=== PATIENT | female | born 1995 | race Hispanic/Latino ===

== ENCOUNTER 2018-12-28 14:49 | Outpatient (CLI) | payer OTHER ==
--- NOTE | 2018-12-28 15:53 | ULT ---
EXAM: OB ultrasound COMPARISON: None HISTORY: female. Evaluate size, dates, and anatomy. TECHNIQUE: Multiplanar grayscale and color Doppler images were obtained in a transabdominal ult rasound. FINDINGS: There is a single live intrauterine with heart rate of 158 bpm. A survey wa s performed which is unremarkable. A four-chamber heart was not adequately visualized. The head, intracranial structures, stomach, kidneys, umbilical cord, umbilical cord insertion, spine, face, an d extremities were evaluated and were unremarkable. Estimated weight is 876 g. Average age of the fetus based off today's examination is 26 weeks 1 day. BPD 6.47 cm -- 26 weeks 2 days HC 23.82 cm -- 26 weeks 0 days AC 22.09 cm -- 26 weeks 4 days FL 4.58 cm -- 25 weeks 2 days The placenta is anterior in location without focal abnormality. SOUMYA is 24.78 cm which is normal. The cervix is normal in length. There is no evidence of placenta previa. IMPRESSION: Single live intrauterine with estimated age of 26 weeks 1 day.
== END 2018-12-28 14:50 | disposition home or self-care (01) ==
LOC: BICULT 14:49
PROVIDERS: ATTEND Family Medicine
DX: O09.92 Supervision of high risk pregnancy, unspecified, second trimester (principal); Z3A.26 26 weeks gestation of pregnancy
CPT/HCPCS: 76805

== ENCOUNTER 2019-03-30 09:22 | Inpatient (IN) | payer MEDICAID, OTHER, SELFPAY ==
[2019-03-30] MEDS ORDERED: Ondansetron PF 4 MG/2 ML Vial IVP PRN ×3 (09:59→14:57)
[2019-03-30] MEDS ORDERED: Bicitra 30 ML UDCUP PO SCH (09:59)
[2019-03-30] MEDS ORDERED: CEFAZOLIN 2 GM in Premix Bag 1 BAG IVPB SCH (09:59)
[2019-03-30] MEDS ORDERED: Lactated Ringer's 1,000 ML IV SCH (09:59)
[2019-03-30] MEDS ORDERED: Promethazine HCl 25 MG/ML VIAL IM PRN ×3 (09:59→14:57)
[2019-03-30] MEDS ORDERED: hydrALAZINE 20 MG/ML VIAL SLOW IVP PRN ×2 (09:59→14:57)
[2019-03-30 10:30] LABS: Hemoglobin 13.8 g/dL (12.0-16.0); Mean Corpuscular HGB CONC 34.1 g/dL (32.0-36.0); Mean Corpuscular Hemoglobin 32.1 pg (27.0-31.0); Mean Corpuscular Volume 94.2 fL (78.0-98.0); Mean Platelet Volume 11.6 fL (7.4-10.4); Platelet Count 135 thou/uL (130-400); RBC Distribution Width 13.1 % (11.5-14.5); White Blood Cell (WBC) Count 9.6 thou/uL (4.8-10.8)
[2019-03-30 11:15] VITALS: BMI 34.3
[2019-03-30 11:16] LABS: HBSAg Index 0.23 S/CO (0-0.99); Hep B Surf Ag Non-Reactive S/CO (NonReactive); Syphilis Antibody Nonreactive (Nonreactive); Syphilis Antibody Index 0.03 S/CO (<1.00 Non-Reactive)
--- NOTE | 2019-03-30 11:52 | PDOC.OPDEL ---
OB Operative/Delivery Note Delivery Dr/Surgeon: Dr. Becerra Assist: Dr. Rich, PGY2 Weeks gestation: 39 (39.5) Anesthesia: epidural - Additional Findings/Plan Repaired Obstetrical Laceration: none Compilations/Other Findings: Procedure Note Date of Procedure: 03/30/19 Attending Surgeon: Dr. Becerra Escort Service Attendant Surgeon: Dr. Rich, PGY2 Procedure: Repeat classical "vertical" caesarean section Preoperative Diagnosis: 1)Term intrauterine 2)Previous classical Postoperative Diagnosis: 1)same as above 2)same as above Anesthesia: spinal Indications: The patient is a 23 year old female at 39.5 weeks gestation who presents for a repeat scheduled Procedure in Detail: After risks, benefits, and alternatives were explained to the patient, she gave informed consent. Pre-operative antibiotics included Cefazolin 2 gram IV and 500mg azithromycin. The patient was taken to the operating room and spinal anesthesia was initiated. She was placed in the supine position with a left tilt and prepped and draped in usual sterile fashion. A vertical incision was made with a scalpel and carried down to the level of the fascia which was sharply nicked. The fascial cut was extended bilaterally with [place] sissors. The inferior and superior edges of the cut fascial edges were elevated with Alcon clamps and the underlying rectus muscles were sharply and bluntly dissected free. The recti were divided digitally and retracted manually. The peritoneum was entered bluntly and retracted manually. Bladder blade was placed. Bladder flap was created with Metzenbaum scissors. A low transverse score was made with the scalpel and the uterus was entered in the midline with the scalpel. Clear fluid was seen. The hysterotomy was extended manually. The infant was noted to be vertex and was easily delivered by fundal pressure. Mouth and nares were bulb suctioned. Cord clamped and cut and grossly normal male/female was handed to waiting nurse. Cord blood was obtained. Placenta was manually extracted, found to be intact with 3 vessel cord and discarded. The uterus was externalized and the endometrium was curetted with a dry lap. The bladder blade was replaced and the uterus was closed with a running locking #1 Chromic suture (Or 0-Vicryl) followed by a running non-locking #1 Chromic imbricating suture. Following this hemostasis was noted. The abdomen was irrigated with saline and suctioned free of clots. The uterus was internalized and the hysterotomy was again noted to be hemostatic. The fascia was closed with a running non-locking 0-Vicryl suture. The subcutaneous tissue was irrigated and there were no bleeders. The skin was approximated with neri and a pressure dressing was placed. All counts were correct. The patient tolerated the procedure well and was taken to the recovery room in stable condition. Estimated Blood Loss: 750 ml Complications: None Specimens: Cord blood sent to lab for blood type Findings: Grossly normal male/female infant with Apgars of _ and _. Grossly normal placenta with 3 vessel cord discarded. Drains: [place] to gravity draining clear urine Post delivery plan: routine recovery
[2019-03-30] MEDS ORDERED: MORPHINE 5 MG/10 ML PF VIAL ONE (12:03)
[2019-03-30] MEDS ORDERED: Fentanyl 100 MCG/2 ML VIAL ONE (12:03)
[2019-03-30] MEDS ORDERED: Ondansetron PF 4 MG/2 ML Vial ONE ×2 (12:04→21:45)
[2019-03-30] MEDS ORDERED: Metoclopramide HCl 10 MG/2 ML VIAL ONE ×2 (12:04→21:45)
[2019-03-30] MEDS ORDERED: Oxytocin 10 UNITS/ML VIAL ONE (12:04)
[2019-03-30] MEDS ORDERED: Promethazine HCl 25 MG SUPP PR PRN (12:51)
[2019-03-30] MEDS ORDERED: Naloxone HCl 0.4 mg/ml Vial IV PRN (12:51)
[2019-03-30] MEDS ORDERED: Ketorolac Tromethamine 30 MG/ML VIAL IVP PRN (12:51)
[2019-03-30] MEDS ORDERED: HYDROmorphone 2 MG/ML VIAL SLOW IVP PRN (12:51)
[2019-03-30] MEDS ORDERED: Meperidine HCl/PF 25 MG/ML VIAL SLOW IVP PRN (12:51)
[2019-03-30] MEDS ORDERED: L&D-Morphine 4 MG/ML VIAL SLOW IVP PRN (12:51)
[2019-03-30] MEDS ORDERED: Naloxone HCl 0.4 mg/ml Vial IVP PRN ×2 (12:51)
[2019-03-30] MEDS ORDERED: Ondansetron HCl/PF 4 MG/2 ML Vial IVP PRN (12:51)
[2019-03-30] MEDS ORDERED: diphenhydrAMINE 50 MG/ML VIAL IVP PRN (12:51)
[2019-03-30] MEDS ORDERED: Ketorolac Tromethamine 30 MG/ML VIAL IVP SCH (13:00)
[2019-03-30] MEDS ORDERED: Communication Order-Pharmacy FS PRN (13:00)
[2019-03-30] MEDS ORDERED: diphenhydrAMINE 25 MG CAP PO PRN (14:57)
[2019-03-30] MEDS ORDERED: Lanolin Ointment 7 GM TUBE TOP PRN (14:57)
[2019-03-30] MEDS ORDERED: Adacel (T-DAP) 0.5 ML SYRINGE IM ONE (14:57)
[2019-03-30] MEDS ORDERED: Bisacodyl 10 MG SUPP PR PRN (14:57)
[2019-03-30] MEDS ORDERED: NS / Oxytocin 40 units/1000ml 1,000 ML IV SCH (14:57)
[2019-03-30] MEDS: Ketorolac Tromethamine 30 MG/ML VIAL IVP SCH (17:40)
[2019-03-30] MEDS: Simethicone Chewable 80 MG TAB PO PRN (17:41)
[2019-03-30] MEDS: Ferrous Sulfate 325 MG TAB PO SCH (19:27)
[2019-03-30] MEDS ORDERED: ePHEDrine 50 MG/ML VIAL ONE (21:45)
[2019-03-30] MEDS: Docusate Calcium (SURFAK) 240 MG CAP PO SCH (22:03)
[2019-03-31] MEDS: Ketorolac Tromethamine 30 MG/ML VIAL IVP SCH ×2 (00:27→05:58)
[2019-03-31] MEDS ORDERED: HYDROcodone/Acetaminophen 5/325 mg Tablet PO PRN ×2 (01:00)
[2019-03-31] MEDS ORDERED: Meperidine HCl/PF 25 MG/ML VIAL IM PRN (01:00)
[2019-03-31 05:26] LABS: Hemoglobin 12.9 g/dL (12.0-16.0); Mean Corpuscular HGB CONC 34.5 g/dL (32.0-36.0); Mean Corpuscular Hemoglobin 33.1 pg (27.0-31.0); Mean Platelet Volume 11.4 fL (7.4-10.4); Platelet Count 123 thou/uL (130-400); RBC Distribution Width 13.1 % (11.5-14.5); Red Blood Cell (RBC) Count 3.91 mill/uL (4.20-5.40); White Blood Cell (WBC) Count 8.8 thou/uL (4.8-10.8)
[2019-03-31] MEDS: Ferrous Sulfate 325 MG TAB PO SCH (09:33)
[2019-03-31] MEDS: Docusate Calcium (SURFAK) 240 MG CAP PO SCH (09:33)
[2019-03-31] MEDS: Prenatal Vitamin 1 TAB PO SCH (09:33)
[2019-03-31] MEDS: Ibuprofen 800 MG TAB PO SCH (14:56)
[2019-04-01] MEDS: Docusate Calcium (SURFAK) 240 MG CAP PO SCH ×3 (00:59→21:34)
[2019-04-01] MEDS: Ibuprofen 800 MG TAB PO SCH ×4 (01:00→21:34)
[2019-04-01] MEDS: Ferrous Sulfate 325 MG TAB PO SCH ×3 (01:00→21:35)
[2019-04-01] MEDS: Simethicone Chewable 80 MG TAB PO PRN (09:37)
[2019-04-01] MEDS: Prenatal Vitamin 1 TAB PO SCH (09:37)
[2019-04-02] MEDS: Ibuprofen 800 MG TAB PO SCH ×2 (05:41→14:35)
[2019-04-02] MEDS: Prenatal Vitamin 1 TAB PO SCH (08:38)
[2019-04-02] MEDS: Docusate Calcium (SURFAK) 240 MG CAP PO SCH (08:38)
[2019-04-02] MEDS: Ferrous Sulfate 325 MG TAB PO SCH (08:38)
[2019-04-02] MEDS ORDERED: Measles/Mumps/Rubella 10 MCG/0.5 ML VIAL SC ONE (15:00)
[2019-04-02 16:03] VITALS: BP 155/84; TEMP 98.5
== END 2019-04-02 16:55 | disposition home or self-care (01) | DRG 788 ==
LOC: L&D 09:22 → 3SW 16:38
PROVIDERS: ADMIT Family Medicine; ATTEND Family Medicine
PROC: 10D00Z1 Extraction of Products of Conception, Low, Open Approach (ICD-10-PCS; principal; 2019-03-30)
DX: O34.212 Maternal care for vertical scar from previous cesarean delivery (principal); Z3A.39 39 weeks gestation of pregnancy; Z37.0 Single live birth
CPT/HCPCS: 36415; 51702; 85027; 86780; 86850; 86900; 86901; 87340; 90707; 90715; J0690; J1885; J2274; J2405; J2590; J2765; J3010; J3490